=== PATIENT | female | born 1970 | race Hispanic/Latino ===

== ENCOUNTER → 2025-04-15 | Outpatient (CLI) | payer OTHER ==
--- NOTE | 2025-04-16 10:45 | HMCIMG ---
EXAM: CT Cardiac calcium scoring. CLINICAL HISTORY: Screening. TECHNIQUE: Thin collimated axial CT cardiac images were obtained. A CT scan is done according to ALARA (As Low As Reasonably Achievable). CONTRAST: None. COMPARISON: None provided. FINDINGS: Calcium Score: VESSEL Number of lesions Volume mm3 Equi. Mass/mg Calcium score LM 0 0 - 0 LAD 0 0 - 0 LCX 0 0 - 0 RCA 1 0.6 - 0.6 Total 1 0.6 - 0.6 IMPRESSION: The total calcium score is 0.6. 76th percentile. /[place]
== END | disposition home or self-care (01) ==
LOC: RAH 10:40
PROVIDERS: ATTEND Internal Medicine Cardiovascular Disease
DX: Z13.6 Encounter for screening for cardiovascular disorders (principal)
CPT/HCPCS: 75571